=== PATIENT | female | born 1970 | race Caucasian/White ===

== ENCOUNTER 2021-05-07 12:24 | Emergency (ER) | payer MEDICAID ==
[~2021-05-07] VITALS: Ht 144.8 cm; Wt 66.0 kg
[2021-05-07 12:54] VITALS: BP 135/86
[2021-05-07] MEDS ORDERED: ACETAMINOPHEN 325MG TABLET PO ONE (13:00)
[2021-05-07] MEDS ORDERED: TOPUD MT (13:45)
== END 2021-05-07 14:01 | disposition home or self-care (01) ==
LOC: ER 12:24
DX: S60.221A Contusion of right hand, initial encounter (principal); E11.9 Type 2 diabetes mellitus without complications; I10 Essential (primary) hypertension; Z98.890 Other specified postprocedural states; W01.0XXA Fall on same level from slipping, tripping and stumbling without subsequent striking against object, initial encounter; Y93.89 Activity, other specified; Y92.89 Other specified places as the place of occurrence of the external cause; Y99.8 Other external cause status
CPT/HCPCS: 73130; 81025; 99283

== ENCOUNTER 2022-05-02 10:47 | Emergency (ER) | payer MEDICAID ==
[~2022-05-02] VITALS: Ht 144.8 cm; Wt 64.0 kg
[~2022-05-02 10:47] MED LIST: TOPUD MT
[2022-05-02 10:57] VITALS: BP 168/94
[2022-05-02] MEDS ORDERED: KETOROLAC 60MG/2ML VIAL IM ONE (13:45)
[2022-05-02] MEDS ORDERED: NAPR-681 MT (15:39)
== END 2022-05-02 16:48 | disposition home or self-care (01) ==
LOC: ER 10:47
DX: M79.18 Myalgia, other site (principal); W18.39XA Other fall on same level, initial encounter; Y93.89 Activity, other specified; Y92.89 Other specified places as the place of occurrence of the external cause; Y99.8 Other external cause status; E11.9 Type 2 diabetes mellitus without complications; I10 Essential (primary) hypertension; Z98.890 Other specified postprocedural states
CPT/HCPCS: 73552; 73562; 81025; 96372; 99284; J1885; L1830; Z7610